=== PATIENT | male | born 1955 | race Caucasian/White ===

== ENCOUNTER 2018-03-03 14:05 | Emergency (ER) | payer SELFPAY ==
[~2018-03-03] VITALS: Ht 162.6 cm; Wt 46.7 kg
[2018-03-03 14:14] VITALS: Ht 162.6 cm; Wt 46.7 kg
[2018-03-03 15:01] VITALS: BP 108/34
== END 2018-03-03 15:01 | disposition home or self-care (01) ==
LOC: ED 14:05
DX: S01.112A Laceration without foreign body of left eyelid and periocular area, initial encounter (principal); Q90.9 Down syndrome, unspecified; E03.9 Hypothyroidism, unspecified; F41.9 Anxiety disorder, unspecified; F79 Unspecified intellectual disabilities; W19.XXXA Unspecified fall, initial encounter; Y93.89 Activity, other specified; Y92.89 Other specified places as the place of occurrence of the external cause; Y99.8 Other external cause status

== ENCOUNTER 2018-04-18 14:55 | Inpatient (IN) | payer OTHER | END 2018-04-21 11:55 | LOC: ED 14:55 → MU 18:42 → ED 14:55 → MU 18:42 → ED 14:55 → MU 18:42 → ED 14:55 → MU 18:42 | DX: J69.0 Pneumonitis due to inhalation of food and vomit (principal); N17.0 Acute kidney failure with tubular necrosis; E43 Unspecified severe protein-calorie malnutrition; E87.0 Hyperosmolality and hypernatremia; E86.0 Dehydration; E03.9 Hypothyroidism, unspecified; F41.9 Anxiety disorder, unspecified; H54.61 Unqualified visual loss, right eye, normal vision left eye; Q90.9 Down syndrome, unspecified; Z68.22 Body mass index [BMI] 22.0-22.9, adult ==

== ENCOUNTER 2018-04-26 11:12 | Inpatient (IN) | payer OTHER ==
[~2018-04-26] VITALS: Ht 152.4 cm; Wt 44.9 kg
[~2018-04-26 11:12] MED LIST: AUGMENTIN 875-1 EACH PO; CALCIUM OYS SH1 EACH PO; CETIRIZINE HYDR10 MG PO; COLACE100 MG PO; DEBROX15 M1; LAC PO; LEVOTHYROXINE0.1 M2 PO; MELATONIN3 M4 PO; PEPCID20 MG PO; RISPERIDONE0.5 M2 PO; VITAMIN D32000 I2 PO
[2018-04-26 13:47] LABS: CALCIUM 9.2 mg/dL (8.5-10.1); CARBON DIOXIDE 32.7 mmol/L (21-32); CHLORIDE SERUM 104 mmol/L (98-107); CREATININE SERUM 0.9 mg/dL (0.7-1.3); GFR1 > 60 mL/min; GLUCOSE SERUM 84 mg/dL (74-106); SODIUM SERUM 143 mmol/L (136-145)
[2018-04-26 13:51] LABS: ALKALINE PHOSPHATASE 78 U/L (46-116); ALT/SGPT 24 U/L (16-63); AST/SGOT 46 U/L (15-37); BILIRUBIN TOTAL 0.55 mg/dL (0.20-1.00); TOTAL PROTEIN, SERUM 7.6 g/dL (6.4-8.2)
[2018-04-26 13:57] LABS: ALBUMIN 1.8 g/dL (3.4-5.0); PLATELET COUNT 486 x10^3mcL (130-400); RED CELL DISTRIBUTION WIDTH 15.4 % (11.5-14.5)
[2018-04-26 13:58] LABS: POTASSIUM SERUM 4.9 mmol/L (3.5-5.1)
[2018-04-26 14:26] LABS: ATYPICAL LYMPH 1 %; BAND NEUTROPHIL 13 % (0-10); BASOPHIL 0 % (0-2); MONOCYTE 8 % (0-7); SEGMENTED NEUTROPHILS 69 % (37-75)
[2018-04-26 14:27] LABS: rbc morphology (normal/abnorm) ABNORMAL (NORMAL); tear drop cell (dacryocyte) 1+
[2018-04-26 14:28] LABS: PLATELET MORPHOLOGY PLATELETS NORMAL; ovalocyte/elliptocyte 1+
[2018-04-26 15:10] LABS: MAGNESIUM 2.3 mg/dL (1.8-2.4); PHOSPHOROUS 3.6 mg/dL (2.5-4.9)
[2018-04-26 15:15] LABS: CHOLESTEROL/HDL RATIO 2.7
[2018-04-26 16:20] VITALS: BP 104/55
[2018-04-26 17:01] VITALS: Ht 152.4 cm; Wt 44.9 kg
[2018-04-26 20:32] VITALS: BP 144/116
[2018-04-27 04:48] VITALS: BP 95/54
[2018-04-27 05:55] VITALS: BP 115/69
[2018-04-27 07:41] LABS: CALCIUM 8.7 mg/dL (8.5-10.1); CARBON DIOXIDE 33.3 mmol/L (21-32); CHLORIDE SERUM 104 mmol/L (98-107); CREATININE SERUM 0.8 mg/dL (0.7-1.3); GFR1 > 60 mL/min; GLUCOSE SERUM 86 mg/dL (74-106); SODIUM SERUM 143 mmol/L (136-145)
[2018-04-27 08:59] LABS: BASOPHIL % 0.6 % (0-2); PLATELET COUNT 424 x10^3mcL (130-400); RED CELL DISTRIBUTION WIDTH 15.3 % (11.5-14.5)
[2018-04-27 09:00] VITALS: BP 96/77
[2018-04-27] MEDS ORDERED: KEFLEX500 M1 PO (15:17)
[2018-04-27 17:25] VITALS: BP 97/78
[2018-04-27 17:27] VITALS: BP 97/78
== END 2018-04-27 20:53 | DRG 602 ==
LOC: ED 11:12 → MU 14:42
PROVIDERS: Specialist; ADMIT Internal Medicine
DX: L03.115 Cellulitis of right lower limb (principal); E43 Unspecified severe protein-calorie malnutrition; Z68.1 Body mass index [BMI] 19.9 or less, adult; L89.311 Pressure ulcer of right buttock, stage 1; L89.511 Pressure ulcer of right ankle, stage 1; L89.621 Pressure ulcer of left heel, stage 1; E03.9 Hypothyroidism, unspecified; Q90.9 Down syndrome, unspecified; F79 Unspecified intellectual disabilities
CPT/HCPCS: 83880; 87804; J0690; J0696; Q0092